=== PATIENT | female | born 1955 | race Two or more races ===

== ENCOUNTER 2024-07-04 06:30 | Day surgery (SDC) | payer MEDICARE, OTHER ==
[2024-06-21 14:37] VITALS: BP 139/92
[~2024-07-04] VITALS: Ht 160 cm; Wt 78.8 kg
[~2024-07-04 06:30] MED LIST: CYMBALTA30 MG PO; LACTATED RINGER'S 1,000 ML IV SCH; Ropivacaine HCl 20 MG/10 ML AMP ONE
[2024-07-04 06:47] VITALS: BP 137/85
[2024-07-04] MEDS ORDERED: ROPIVACAINE IN 0.9% SOD CHL/PF 545 ML ELS.PMP.HR IRRIGATION SCH (07:00)
[2024-07-04] MEDS ORDERED: GABAPENTIN 600 MG TAB PO SCH (07:00)
[2024-07-04] MEDS ORDERED: LIDOCAINE HCL 1% 5 ML SDV INJ ONE (07:00)
[2024-07-04] MEDS ORDERED: OXYCODONE HCL 5 MG TAB PO SCH (07:00)
[2024-07-04] MEDS ORDERED: DULOXETINE HCL 60 MG CAP PO SCH (07:00)
[2024-07-04] MEDS ORDERED: ondansetron HCL 4 MG TAB PO SCH (07:00)
[2024-07-04] MEDS ORDERED: CEFAZOLIN SODIUM 2 GM/20 ML SYR IV SCH ×3 (07:00→18:00)
[2024-07-04] MEDS ORDERED: IBLOOD GLUCOSE TEST STRIP 1 EA TEST VI PRN ×2 (07:00→10:15)
[2024-07-04] MEDS ORDERED: PANTOPRAZOLE SODIUM 40 MG TABEC PO SCH (07:00)
[2024-07-04] MEDS ORDERED: TRANEXAMIC ACID IN NACL,ISO-OS 1,000 MG/100 ML PIGGYBACK IV SCH ×2 (07:00→12:00)
[2024-07-04] MEDS ORDERED: INTRA-ARTICULAR ANALGESIC INJECTION XX SCH (07:00)
--- NOTE | 2024-07-04 07:29 | NUR ---
PT NOT AVAILABLE FOR VISIT. PROVIDED PRAYER.
--- NOTE | 2024-07-04 07:46 | NUR ---
VISITED DURING SPIRITUAL CARE ROUNDS. PT IN OVERALL GOOD SPIRITS, NO IMMEDIATE CONCERNS. HEAD RESIDENT PROVIDED SUPPORTIVE PRESENCE, HOSPITALITY, PRAYER. PT EXPRESSED GRATITUDE, EXPLORED SPIRITUAL PRACTICES, EXPRESSED THAT VISIT WAS "UPLIFTING."
[2024-07-04] MEDS ORDERED: SODIUM CHLORIDE 0.9% 20 ML IV ONE (08:20)
[2024-07-04] MEDS ORDERED: MIDAZOLAM HCL 2 MG/2 ML VIAL ONE (08:20)
[2024-07-04] MEDS ORDERED: LIDOCAINE HCL 2% 5 ML SDV ONE (08:20)
[2024-07-04] MEDS ORDERED: ondansetron HCL 4 MG/2 ML VIAL ONE (08:20)
[2024-07-04] MEDS ORDERED: Ropivacaine HCl 0.5% 30 ML VIAL ONE (08:20)
[2024-07-04] MEDS ORDERED: propofoL 200 MG/20 ML VIAL ONE ×2 (08:20→10:23)
[2024-07-04] MEDS ORDERED: DEXAMETHASONE SOD PHOS 4 MG/ML VIAL ONE (08:20)
[2024-07-04] MEDS ORDERED: KETOROLAC TROMETHAMINE 30 MG/ML VIAL ONE (08:28)
[2024-07-04] MEDS ORDERED: ACETAMINOPHEN 1,000 MG/100 ML VIAL ONE (10:09)
[2024-07-04] MEDS ORDERED: ondansetron HCL 4 MG/2 ML VIAL IV PRN (10:15)
[2024-07-04] MEDS ORDERED: droPERidol 5 MG/2 ML VIAL IV PRN (10:15)
[2024-07-04] MEDS ORDERED: HYDROmorphone HCL 1 MG/ML SYR IV PRN (10:15)
[2024-07-04] MEDS ORDERED: NALOXONE HCL 0.4 MG SYR IV PRN (10:15)
[2024-07-04] MEDS ORDERED: fentaNYL citrate 50 MCG/ML SDV IV PRN (10:15)
[2024-07-04] MEDS ORDERED: PROCHLORPERAZINE EDISYLATE 10 MG/2 ML VIAL IV PRN (10:15)
[2024-07-04] MEDS ORDERED: PHENYLEPHRINE HCL 10 MG/ML VIAL ONE (10:20)
[2024-07-04] MEDS ORDERED: LACTATED RINGER'S 1,000 ML IV ONE (10:46)
[2024-07-04] MEDS ORDERED: OXYCODONE HCL 5 MG TAB PO PRN (11:00)
[2024-07-04] MEDS ORDERED: CEFUROXIME250 MG PO (11:05)
[2024-07-04] MEDS ORDERED: GABAPENTIN300 MG PO (11:06)
[2024-07-04] MEDS ORDERED: DICLOFENAC SODI75 MG PO (11:06)
[2024-07-04] MEDS ORDERED: OXYCODONE HCL5 MG PO (11:06)
[2024-07-04] MEDS ORDERED: SENNA LAX8.6 MG PO (11:06)
[2024-07-04] MEDS ORDERED: ASPIRIN325 MG PO (11:06)
--- NOTE | 2024-07-04 11:25 | NUR ---
07/04/24 Nusrat Prather PATIENT REPORTS "I FEEL GOOD! THIS IS SO MUCH BETTER THAN LAST TIME. THANK YOU!" PATIENT FOLLOWS INSTRUCTIONS TO LIFT HER HEAD OFF HER PILLOW. SURGICAL BONNET AND OXYGEN ARE REMOVED.
[2024-07-04 11:49] VITALS: BP 134/76
--- NOTE | 2024-07-04 12:00 | NUR ---
1147-PT BACK TO ROOM FROM PACU ON RA. RECEIVED REPORT FROM MO HOOKS. PT IS AWAKE. RESP EVEN AND UNLABORED. DENIES PAIN AND NAUSEA. CRYO CUFF IN PLACE AND RUNNING. ON-Q PUMP SET AT 4. PROVIDED PT WITH WATER AND PUDDING. SON AT BEDSIDE. LUNCH ORDERED. NO OTHER NEEDS AT THIS TIME. CALL LIGHT WITHIN REACH.
[2024-07-04 12:51] VITALS: BP 143/87
--- NOTE | 2024-07-04 13:37 | NUR ---
LE 1235-PT STATES SHE HAS VOIDED. PT VOIDS ANOTHER 400ML USING BED COCHRAN. LE 1240-BED CHANGED. LE 1251-PT LAYING IN BED. RESP EVEN AND UNLABORED. DENIES PAIN AND NAUSEA. ON-Q PUMP SET AT 4. CRYO CUFF IN PLACE AND RUNNING. LUNCH IN ROOM. PT STATES PUDDING UPSET HER STOMACH BUT DOES NOT NEED ANYTHING AT THIS TIME. SON AT BEDSIDE. NO OTHER NEEDS AT THIS TIME. CALL LIGHT WITHIN REACH.
[2024-07-04 13:47] VITALS: BP 162/100
--- NOTE | 2024-07-04 13:53 | NUR ---
LE 1347-PT IS LAYING IN BED. RESP EVEN AND UNLABORED. STATES "JUST AND ACHE" IN HER RIGHT KNEE. DENIES NAUSEA. ON-Q PUMP SET AT 4. CRYO CUFF IN PLACE AND RUNNING. NO OTHER NEEDS AT THIS TIME. CALL LIGHT WITHIN REACH. DESHAWN 1351-PHYSICAL THERAPY IN ROOM WITH PT.
[2024-07-04 14:47] VITALS: BP 146/85
[2024-07-04] MEDS ORDERED: ACETAMINOPHEN 500 MG TAB PO SCH (15:00)
[2024-07-04] MEDS ORDERED: GABAPENTIN 300 MG CAP PO SCH (15:00)
--- NOTE | 2024-07-04 15:13 | NUR ---
LE 1429-PT BACK TO ROOM FROM PHYSICAL THERAPY. PT IS LAYING IN BED RATES PAIN A 7/10. PAIN MEDICATION GIVEN PER EMAR. LE 1447-PT RATES PAIN A 5/10 NOW. DENIES NAUSEA. PT IS READY TO GO HOME. PT WILL GET DRESSED. CALL LIGHT WITHIN REACH.
--- NOTE | 2024-07-04 15:20 | NUR ---
LE 1500-PROVIDED PT WITH DISCHARGE INSTRUCTIONS. WENT OVER ALL POSTOP MEDICATIONS. ALL QUESTIONS ANSWERED. LE 1505-PT AMBULATES WITH WALKER TO WHEELCHAIR AND RIDE PROVIDED TO FRONT OF HOSPITAL WHERE SON WAS WAITING WITH THE CAR.
[2024-07-04] MEDS ORDERED: ASPIRIN 325 MG TAB PO SCH (21:00)
[2024-07-04] MEDS ORDERED: SENNOSIDES 1 TAB PO SCH (21:00)
[2024-07-05] MEDS ORDERED: DICLOFENAC SOD 75 MG TABEC PO SCH (08:00)
[2024-07-05] MEDS ORDERED: cefuroxime axetiL 250 MG TAB PO SCH (09:00)
--- NOTE | 2024-07-08 06:52 | OR ---
[facility] [address], [place] [address] Signed DATE OF OPERATION: 07/04/2024 SURGEON: Shannan Reveles MD PREOPERATIVE DIAGNOSIS: Severe degenerative joint disease, right knee. POSTOPERATIVE DIAGNOSIS: Severe degenerative joint disease, right knee. PROCEDURE PERFORMED: Right total knee arthroplasty with Daniel. COGNOS CONSULTANT: Doris Green PA-C. ANESTHESIA: Spinal. BLOOD LOSS: 165 mL. IMPLANTS: Galilea Triathlon size 4 with a 10 mm polyethylene and a 29 mm patella. 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 She had done well until recently and nonoperative treatment was no longer helpful. Risks, benefits, alternatives of total knee were discussed with her and she understood and wished to proceed. DESCRIPTION OF PROCEDURE: Once consent was obtained, she was taken to the operating room. After adequate anesthesia she was placed on the operating room table. The right hip was placed on a hip bump. No tourniquet was used. The leg was then prepped and draped in a standard sterile fashion. The knee was approached through standard anterior midline incision, carried through skin and subcutaneous tissue. The knee was entered through a mid vastus approach. The MCL was elevated of the posteromedial corner as a sleeve. The infrapatellar fat pad was excised. The ACL was absent. The anterior horns of the menisci were absent. The PCL was intact. The computer arrays were then placed in the Electronically Signed By: SHANNAN REVELES MD 07/08/24 0652 PATIENT NAME: TANISHA GARRIDO OPERATIVE REPORT DATE OF : 55 REPORT #: [id number] PHYSICIAN: SHANNAN REVELES MD PCP: BREANNA VIEIRA DO REPORT IS CONFIDENTIAL AND NOT TO BE RELEASED WITHOUT AUTHORIZATION [facility] [address], [place] [address] Signed distal femur and proximal tibia. The leg was then registered with the computer followed by the fine anatomic points of the knee. The ligamentous balance was then undertaken and a slight adjustments were made to the computer plan. The robot was then brought in and the four straight cut and two angle cuts were made with care taken to protect the patellar tendon and MCL. The bony remnants were removed as were any remaining osteophytes. The posterior osteophytes removed off the femur. The posterior release was not performed. The trials were then positioned. Knee was taken from 0 to 130 degrees with good stability throughout. The patella was cut, sized and drilled for a 29 mm patella. The patella was noted to track well. The distal femoral drill holes were completed. Proximal tibia was finished using the keel punch and drill holes. The implants were then selected. The tibia was impacted in position first followed by the polyethylene. The femur was then impacted until it was well seated on all cuts. The knee was then extended and loaded. The patella was then clamped into position. All components had good bony graft. The knee was then washed out with one bottle of IrriSept followed by normal saline. The On-Q pain pump was percutaneously placed into the adductor canal from the suprapatellar pouch. The periarticular soft tissues were injected with 75 mL ropivacaine Toradol mixture. The arthrotomy was then closed using combination of #2 FiberWire and #2 StrataFix. The subcutaneous tissue with 0 Stratafix and skin with 3-0 Stratafix. The wound was sealed with LiquiBand and Steri-Strips and dressed with an Acticoat-7 dressing, ABDs and Fady wrap. She tolerated the procedure well. All sponge, needle, and instrument counts were correct. Shannan Reveles MD BA/MODL /[id number] Copies: ~ Electronically Signed By: SHANNAN REVELES MD 07/08/24 0652 PATIENT NAME: TANISHA GARRIDO OPERATIVE REPORT DATE OF : 55 REPORT #: [id number] PHYSICIAN: SHANNAN REVELES MD PCP: BREANNA VIEIRA DO REPORT IS CONFIDENTIAL AND NOT TO BE RELEASED WITHOUT AUTHORIZATION
== END 2024-07-04 15:05 | disposition home or self-care (01) ==
LOC: DS 06:30
PROVIDERS: ATTEND Specialist
PROC: 0SRC0JZ Replacement of Right Knee Joint with Synthetic Substitute, Open Approach (ICD-10-PCS; principal; 2024-07-04 09:05)
DX: M17.11 Unilateral primary osteoarthritis, right knee (principal); Z88.8 Allergy status to other drugs, medicaments and biological substances; Z79.899 Other long term (current) drug therapy
CPT/HCPCS: 01400; 64447; 64450; 64454; 73560; 76942; 97161; 97530; A9270; C1713; C1776; J0131; J0690; J1100; J1885; J2003; J2250; J2371; J2405; J2704; J2795; J7121; J7999